=== PATIENT | female | born 1985 | race Caucasian/White ===

== ENCOUNTER 2018-02-02 13:41 | Emergency (ER) | payer OTHER ==
[~2018-02-02] VITALS: Ht 162.6 cm; Wt 104.5 kg
[~2018-02-02 13:41] MED LIST: MOBIC7.5 MG PO; TRAMADOL HCL50 MG PO
[2018-02-02 15:04] LABS: HEMATOCRIT 41.1 % (36.0-46.0); HEMOGLOBIN 14.1 G/DL (11.9-15.5); MCH 31.3 PG (29.0-34.0); MCHC 34.3 G/DL (30.0-36.0); MCV 91.3 FL (83-99); PLATELET COUNT 317 K/uL (156-360); RBC DIS.WIDTH-CV 12.5 % (11.8-14.6); RBC DIS.WIDTH-SD 41.3 % (39-53); WHITE BLOOD COUNT 9.7 K/uL (4.1-10.2)
[2018-02-02 15:11] LABS: CHLORIDE 110 mEq/L (99-109); POTASSIUM 4.3 mEq/L (3.7-5.4); SODIUM 139 mEq/L (136-147)
[2018-02-02 15:12] LABS: GLUCOSE 92 mg/dL (70-99)
[2018-02-02 15:16] LABS: CREATININE 0.8 mg/dL (0.6-1.3); GFR ESTIMATE (CALCULATED) > 59 mL/min/
[2018-02-02 15:17] LABS: UREA NITROGEN (BUN) 9 mg/dL (9-23)
[2018-02-02 17:17] LABS: TROP-I INTERPRETATION NEGATIVE; TROPONIN-I < 0.01 ng/mL (0.0-0.30)
[2018-02-02 18:20] LABS: QUANTITATIVE HCG < 4.0 MIU/ML
[2018-02-02 18:57] VITALS: BP 111/78
== END 2018-02-02 19:04 | disposition home or self-care (01) ==
LOC: EME 13:41
PROVIDERS: Emergency Medicine
DX: E86.0 Dehydration (principal); R51 Headache; R55 Syncope and collapse; F17.200 Nicotine dependence, unspecified, uncomplicated
CPT/HCPCS: 71046; 80048; 84484; 84702; 85027; 93005; 99281; 99285; J7030